=== PATIENT | male | born 1995 | race Caucasian/White ===

== ENCOUNTER 2017-09-04 20:15 | Emergency (ER) | payer BC ==
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
--- NOTE | 2017-09-04 21:02 | RADIOLOGY IMAGING REPORT ---
FACILITY: [facility] [place] PATIENT NAME: Rao Alfred : 1995 MR: [id number] V: [id number] EXAM DATE: ORDERING PHYSICIAN: CHAYO MOORE TECHNOLOGIST: Location: [facility] Patient: Rao Alfred : 1995 Visit/Account:[id number] Date of Sevice: 09/04/2017 Technique: HAND COMPLETE LEFT HISTORY: Hit wall Comparison studies: None FINDINGS: There is no acute fracture. The alignment of the left hand is maintained. Soft tissues are unremarkable. IMPRESSION: 1. No acute osseous process. Report Dictated By: Dipesh Gonzalez DO at 09/04/2017 8:55 PM Report E-Signed By: Dipesh Gonzalez DO at 09/04/2017 8:56 PM WSN:[id number]
--- NOTE | 2017-09-04 21:07 | RADIOLOGY IMAGING REPORT ---
FACILITY: [facility] PATIENT NAME: Rao Alfred : 1995 MR: [id number] V: [id number] EXAM DATE: ORDERING PHYSICIAN: CHAYO MOORE TECHNOLOGIST: Location: [facility] Patient: Rao Alfred : 1995 Visit/Account:[id number] Date of Sevice: 09/04/2017 WRIST LEFT MIN 3 VIEW History: Injury COMPARISON: none. FINDINGS: 3 views are provided. No evidence of fracture. Joint spaces and alignment within normal chavez its. Soft tissues are swollen. IMPRESSION: Soft tissue swelling without evidence of fracture. Report Dictated By: Mike Granados MD at 09/04/2017 9:02 PM Report E-Signed By: Mike Granados MD at 09/04/2017 9:04 PM WSN:[id number]
[2017-09-04 21:28] LABS: PLATELET COUNT, AUTOMATED 238 K/uL (150-450)
[2017-09-04 22:30] VITALS: BP 128/75
== END 2017-09-04 22:47 ==
LOC: ER 20:29
DX: F32.9 Major depressive disorder, single episode, unspecified (principal); R45.851 Suicidal ideations
CPT/HCPCS: 36415; 80305; 80320; 80329; 81001; 82040; 82247; 82310; 82374; 82435; 82565; 82947; 83735; 84075; 84132; 84155; 84295; 84443; 84450; 84460; 84520; 85025; 99284

== ENCOUNTER 2017-09-04 22:21 | Inpatient (IN) | payer BC ==
[~2017-09-04] VITALS: Ht 170.2 cm; Wt 65.8 kg
[2017-09-04] MEDS ORDERED: hydrOXYzine PAMOATE 25 MG CAP PO PRN (23:20)
[2017-09-04] MEDS ORDERED: MAG HYD/AL HYD/SIMETH 30ML UDC PO PRN (23:35)
[2017-09-04] MEDS ORDERED: ACETAMINOPHEN 325 MG TAB PO PRN (23:35)
[2017-09-05 00:20] VITALS: BP 139/78
[2017-09-05] MEDS ORDERED: LORazepam 1 MG TAB PO PRN (00:25)
[2017-09-05] MEDS: MULTIVITAMINS TAB PO SCH (08:24)
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
[2017-09-05] MEDS ORDERED: MIRTAZAPINE 15 MG TAB PO PRN (20:55)
[2017-09-06 05:35] VITALS: BP 95/60
[2017-09-06] MEDS: MULTIVITAMINS TAB PO SCH (09:38)
--- NOTE | 2017-09-06 15:27 | BHS Progress Note ---
[facility] - Subjective Progress Notes Subjective Patient interacting in a manner consistent with underlying cluster B personality traits, is taking an active role in her treatment. Mood improving, and notably interacting well with his Mother here for treatment team meeting. Will consider increase in medication tonight, Patient states he is not sleeping on medication, while staff indicates he is. Patient denies any other concerns today Suicidal Ideation: Resolving Homicidal Ideation: None [facility] - Objective Physical Exam Vital Signs Vital Signs Date Time Temp Pulse Resp B/P (MAP) Pulse Ox O2 Delivery O2 Flow Rate FiO2 09/06/17 05:35 98.4 59 15 95/60 (72) 94 Room Air Muscle Strength and Tone: WNL Gait and Station: Steady [facility] Medications Reviewed: Side Effects, Benefits of Medication, Risks Allergies Reviewed: Yes Mental Status Exam General Appearance: Casual, Well Groomed, Good Eye Contact, Cooperative, Polite , Good Interaction, No Unkept, No Tearful, No Psychomotor Agitation, No Psychomotor Retardation, No Bizarre Mannerisms, No Tics Speech: Clear, Spontaneous, Normal Rate, Normal Rhythm, Normal Volume, Normal Tone Mood: Dysthmic/Depressed Affect: Calm, No Sad, No Neutral, No Flat, No Withdrawn, No Tearful, No Anxious , No Agitated Thought Process: Organized, Logical, Goal Directed, No Loose Associations, No Flight of Ideas Thought Content: Suicidal Ideation (resolving), No Homicidal Ideation, No Delusions, No Auditory Halllucinations, No Visual Hallucinations, No Thought Broadcasting, No Ideas of Reference, No Obsessions, No Compulsions Sensorium: Clear Cognition: Alert & Oriented-Person, Alert & Oriented-Place, Alert & Oriented- Time Memory: Immediate, Recent, Remote Intelligence: Average Insight Judgment: Poor (underlying cluster B traits. ) [facility] Assessment and Plan [id number] Encounter Date: Sep 06, 2017 [id number] Encounter Time: 10:00 [facility] Plan: Necessary Precautions, Individual/Group Therapy, Admin/Titrate Meds, Educate Patient Multpiple Antipsychotics Used: No Problems: (1) Cluster B personality disorder Status: Chronic (2) Adjustment disorder with depressed mood Optional Permanent Comment: concerning break up Last Edited By: Portillo Ding on Sep 06, 2017 15:25 Status: Acute Condition 1. consider increase in nightime medication to improve sleep. 2. potential discharge to care of mother tomorrow. PORTILLO DING MD Sep 06, 2017 15:27
[2017-09-06] MEDS ORDERED: MIRTAZAPINE 15 MG TAB PO SCH (21:00)
[2017-09-07 06:27] VITALS: BP 104/53
[2017-09-07] MEDS: MULTIVITAMINS TAB PO SCH (08:10)
[2017-09-07] MEDS ORDERED: MIRT-1 PO (14:26)
[2017-09-07] MEDS ORDERED: MULT-1379 PO (14:26)
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
== END 2017-09-07 16:55 | disposition home or self-care (01) | DRG 881 ==
LOC: BHS 22:21
PROVIDERS: ADMIT Psychiatry & Neurology Psychiatry; ATTEND Psychiatry & Neurology Psychiatry
DX: F43.21 Adjustment disorder with depressed mood (principal); R45.851 Suicidal ideations; I10 Essential (primary) hypertension; F60.3 Borderline personality disorder; Z63.0 Problems in relationship with spouse or partner; Z91.5 Personal history of self-harm
CPT/HCPCS: 90853; Q0177